=== PATIENT | female | born 1990 | race Caucasian/White ===

== ENCOUNTER 2017-01-19 05:51 | Inpatient (IN) | payer BC ==
[2017-01-19] VITALS (34 sets, daily range): BP systolic 95–140; BP diastolic 50–93
[~2017-01-19] VITALS: Ht 160 cm; Wt 76.2 kg
[~2017-01-19 05:51] MED LIST: CIPRO500 MG PO; MOTRIN600 MG PO; ULTRACET1 TABLET PO
[2017-01-19] MEDS ORDERED: PRENATAL TABLE1 EAC3 PO (06:22)
[2017-01-19 07:01] LABS: EOSINOPHIL COUNT 0.2 K/uL (0-0.3); HEMATOCRIT 39.6 % (36.0-46.0); IMMATURE GRANULOCYTE (%) 0.4 % (0.0-0.7); LYMPHOCYTE COUNT 1.7 K/uL (1.0-2.8); MCH 31.7 PG (29.0-34.0); MCHC 35.6 G/DL (30.0-36.0); MEAN PLAT.VOLUME 10.6 uM^3 (9.5-12.4); MONOCYTE (%) 4.9 % (3-12); MONOCYTE COUNT 0.5 K/uL (0-0.8); NEUTROPHIL (%) 74.5 % (45-76); PLATELET COUNT 245 K/uL (156-360); RBC DIS.WIDTH-CV 12.9 % (11.8-14.6); RED BLOOD COUNT 4.45 M/uL (3.80-5.20); WHITE BLOOD COUNT 9.4 K/uL (4.1-10.2)
[2017-01-19 10:44] LABS: POINT-OF-CARE METER ID UU13113692
[2017-01-19 11:11] LABS: POINT-OF-CARE METER ID UU13113692
[2017-01-19 14:58] LABS: POINT-OF-CARE METER ID UU13113692
[2017-01-19 19:29] LABS: POINT-OF-CARE METER ID UU13113692
[2017-01-20] VITALS (8 sets, daily range): BP systolic 108–127; BP diastolic 60–72
[2017-01-20 08:25] LABS: EOSINOPHIL (%) 0.4 % (0-5); EOSINOPHIL COUNT 0.1 K/uL (0-0.3); HEMATOCRIT 32.3 % (36.0-46.0); IMMATURE GRANULOCYTE (%) 0.4 % (0.0-0.7); IMMATURE GRANULOCYTE COUNT 0.1 K/uL; INSTRUMENT ABS NEUTROPHIL CT 8.7 K/uL; LYMPHOCYTE COUNT 1.7 K/uL (1.0-2.8); MCH 30.3 PG (29.0-34.0); MCHC 33.7 G/DL (30.0-36.0); MCV 89.7 FL (83-99); MEAN PLAT.VOLUME 10.4 uM^3 (9.5-12.4); MONOCYTE (%) 6.3 % (3-12); MONOCYTE COUNT 0.7 K/uL (0-0.8); NEUTROPHIL (%) 77.3 % (45-76); NEUTROPHIL COUNT 8.7 K/uL (1.8-6.4); PLATELET COUNT 213 K/uL (156-360); RBC DIS.WIDTH-CV 12.9 % (11.8-14.6); RBC DIS.WIDTH-SD 41.9 % (39-53); WHITE BLOOD COUNT 11.3 K/uL (4.1-10.2)
[2017-01-21 07:58] VITALS: BP 116/77
[2017-01-21 12:47] VITALS: BP 122/76
[2017-01-21 15:22] VITALS: BP 126/75
[2017-01-21 23:52] VITALS: BP 106/60
[2017-01-22] MEDS ORDERED: ENDOCET 5-3251 EACH PO (07:56)
[2017-01-22] MEDS ORDERED: IBUPROFEN800 MG PO (07:56)
== END 2017-01-22 12:35 | disposition home or self-care (01) | DRG 766 ==
LOC: LDRP-OP 05:51 → 2WEST 05:52 → LDRP-OP 19:17 → 2WEST 19:45 → LDRP-OP 02-20 04:04
PROVIDERS: Obstetrics & Gynecology; Obstetrics & Gynecology Gynecology
PROC: 00HU33Z Insertion of Infusion Device into Spinal Canal, Percutaneous Approach (ICD-10-PCS; principal; 2017-01-19)
PROC: 3E0R3BZ Introduction of Anesthetic Agent into Spinal Canal, Percutaneous Approach (ICD-10-PCS; principal; 2017-01-19)
PROC: 10D00Z1 Extraction of Products of Conception, Low, Open Approach (ICD-10-PCS; principal; 2017-01-19)
PROC: 10907ZC Drainage of Amniotic Fluid, Therapeutic from Products of Conception, Via Natural or Artificial Opening (ICD-10-PCS; principal; 2017-01-19)
DX: O32.6XX0 Maternal care for compound presentation, not applicable or unspecified (principal); Z37.0 Single live birth; Z3A.39 39 weeks gestation of pregnancy; O24.420 Gestational diabetes mellitus in childbirth, diet controlled; O32.2XX0 Maternal care for transverse and oblique lie, not applicable or unspecified; O69.81X0 Labor and delivery complicated by cord around neck, without compression, not applicable or unspecified
CPT/HCPCS: 82948; 85025; C1755; J0690; J1815; J2274; J2405; J7120

== ENCOUNTER → 2017-01-25 | Outpatient (CLI) | payer BC ==
[~2017-01-25] MED LIST changes: +ENDOCET 5-3251 EACH PO; +IBUPROFEN800 MG PO; +PRENATAL TABLE1 EAC3 PO
== END | disposition home or self-care (01) ==
LOC: LAC 14:27
DX: Z39.1 Encounter for care and examination of lactating mother (principal); O92.29 Other disorders of breast associated with pregnancy and the puerperium; O92.79 Other disorders of lactation
CPT/HCPCS: G0463